=== PATIENT | male | born 1940 | race Caucasian/White ===

== ENCOUNTER 2018-08-04 19:13 | Inpatient (IN) | payer OTHER ==
[~2018-08-04] VITALS: Ht 167.6 cm; Wt 94.3 kg
--- NOTE | 2018-08-04 19:38 | NUR ---
PT BIB FAMILY FOR C/O COUGH X 5 DAYS. PT STATES THAT [place] AND USUALLY IS ON 2L 02 AT NIGHT WHILE HE SLEEPS HOWEVER HE RAN OUT OF HIS 02 TANK. PT IS REQUESTING A PRESCRIPTION FOR ANOTHER ONE BECAUSE HE GETS SOB WHEN HE COUGHS. PT IS SATURATING AT 96% ON RA AND HAS A HX OF COPD AND ASTHMA. PT IS SPEAKING IN CLEAR AND FULL SENTENCES. PT HAS EQUAL AND UNALBORED CHEST RISE. NAD AT THIS TIME. AWAITING MSE. PT CONNECTED TO PLETH OX
--- NOTE | 2018-08-04 19:54 | NUR ---
PT LUNG SOUNDS CLEAR IN ALL FLEMING. UPON INSPIRATION PT COUGHS ALMOST EVERY TIME. PT COUGH IS DRY AND DEEP. PT BECOMES SOB UPON COUGHING, BUT IS ABLE TO CATCH HIS BREATH WITHIN A FEW SECONDS
--- NOTE | 2018-08-04 20:09 | NUR ---
BREATHING TX IN PROGRESS RT AT BEDSIDE
[2018-08-04 20:13] LABS: BASOPHIL % 0.5 % (0-2); PLATELET COUNT 167 x10^3mcL (130-400); RED CELL DISTRIBUTION WIDTH 14.2 % (11.5-14.5)
--- NOTE | 2018-08-04 20:32 | NUR ---
RT AT BEDSIDE FOR BREATHING TX
[2018-08-04 20:42] LABS: T3 TOTAL 1.24 ng/mL
[2018-08-04 21:17] LABS: CHLORIDE SERUM 106 mmol/L (98-107); POTASSIUM SERUM 3.6 mmol/L (3.5-5.1); SODIUM SERUM 144 mmol/L (136-145)
--- NOTE | 2018-08-04 21:28 | NUR ---
PT STATES RELIEF FROM CHEST TIGHTNESS AND STATES HE CAN BREATHE BETTER AFTER THE 2 BREATHING TX
[2018-08-04 21:33] LABS: ALBUMIN 3.6 g/dL (3.4-5.0); ALKALINE PHOSPHATASE 101 U/L (46-116); ALT/SGPT 20 U/L (16-63); AST/SGOT 21 U/L (15-37); BILIRUBIN TOTAL 0.59 mg/dL (0.20-1.00); CALCIUM 9.4 mg/dL (8.5-10.1); CARBON DIOXIDE 24.9 mmol/L (21-32); CHOLESTEROL 153 mg/dL (<200); CHOLESTEROL/HDL RATIO 3.7; GLUCOSE SERUM 116 mg/dL (74-106); HDL CHOLESTEROL 41 mg/dL (40-60); LIPASE 72 IU/L (73-393); TOTAL PROTEIN, SERUM 7.1 g/dL (6.4-8.2); TRIGLYCERIDES 163 mg/dL (<150)
--- NOTE | 2018-08-04 21:49 | NUR ---
PT REQUESTING FOOD. MD GIBBS STATES ITS OKAY FOR HIM TO EAT. PT PROVIDED TUNA SANWHICH, SPRITE, AND JELLO FOR HUNGER. PT ATE ENTIRITY OF MEAL.
[2018-08-04] MEDS ORDERED: TRAMADOL HCL50 MG PO (21:51)
[2018-08-04] MEDS ORDERED: TIZANIDINE HCL4 MG PO (21:51)
[2018-08-04] MEDS ORDERED: BENZONATATE100 M1 PO (21:52)
[2018-08-04] MEDS ORDERED: GOOD SENSE OMEP20 MG PO (21:52)
[2018-08-04] MEDS ORDERED: GOOD SENSE ASPI81 M3 PO (21:52)
[2018-08-04] MEDS ORDERED: SERTRALINE100 M1 PO (21:53)
[2018-08-04] MEDS ORDERED: MOT800 PO (21:58)
[2018-08-04] MEDS ORDERED: OXYCODONE HYDRO10 M1 PO (21:58)
[2018-08-04] MEDS ORDERED: ATORVASTATIN CA40 M1 PO (21:58)
[2018-08-04] MEDS ORDERED: MYCOC TOP (21:59)
[2018-08-04] MEDS ORDERED: CYCLOBENZAPRINE10 MG PO (21:59)
[2018-08-04] MEDS ORDERED: FLOMAX0.4 MG PO (22:00)
[2018-08-04] MEDS ORDERED: FLOVENT DI50 MCG/Ac1 IH (22:00)
--- NOTE | 2018-08-04 22:06 | NUR ---
CALLED REPORT TO JACQUELINE CHONG
[2018-08-04 22:23] LABS: FREE T4 0.97 ng/dL (0.76-1.46); FREE THYROXINE INDEX 2.2 ug/dL (1.4-4.5); T4(THYROXINE) 5.7 ug/dL (4.7-13.3)
[2018-08-04 22:29] LABS: MAGNESIUM 1.9 mg/dL (1.8-2.4)
--- NOTE | 2018-08-04 22:39 | NUR ---
RECEIVED PT FROM ER, PT ADMIT FOR PNA, COPD, PT IS A/O X4, VERBAL RESPONSIVE, AGUA CALIENTE, LUNG SOUND WHEEZING ELEUTERIO, CONSTANTLY COUGH, PT IS ON 2L/MIN O2 VIA NC. PO2 96%, DENY ANY SOB AT THIS MOMENT, PT IS ON TELE 9, FIRST DEGREE, DENY ANY CHEST PAIN OR DISCOMFORT, BOWEL SOUND PRESENT ALL 4 QUADRANTS, NO DISTENTION, NO TENDER. PEDAL PULSE PRESENT BOTH FEET, +1 EDEMA BLE. THERE IS DRY ABRASION AT RIGTH KNEE. FORM SCAB ON THE TOP. FOOT WORKER, IV AT RIGHT HAND, NO LEAKING, NO INFILTRATION, ALL ADLS ASSIST, ALL NEED MET, CALL LIGHT IN REACH, WILL CONTINUE TO MONITOR.
[2018-08-04 23:40] VITALS: BP 105/57
--- NOTE | 2018-08-05 | NUR ---
STARTED ON IVF NS AT 100CC/HR VIA PERIPHERAL LINE AT THE RIGHT HAND TOLERATING WELL. SOLUMDEROL 40MG IVP ORDERED. MINIMAL ASSIST IN REPOSITIONING FOR COMFORT.
[2018-08-05 05:41] VITALS: BP 125/73
--- NOTE | 2018-08-05 06:04 | NUR ---
WILL START ATB IVPB FOR MANAGEMENT OF PNEUMONIA. TOLERATED ORAL FLUIDS . NO S/S ASPIRATION NOTED.
[2018-08-05 07:50] LABS: CARBON DIOXIDE 22.4 mmol/L (21-32); CHLORIDE SERUM 108 mmol/L (98-107); CREATININE SERUM 0.9 mg/dL (0.7-1.3); GLUCOSE SERUM 150 mg/dL (74-106); SODIUM SERUM 143 mmol/L (136-145)
--- NOTE | 2018-08-05 07:56 | NUR ---
[Patient is on bed and sleeping. No sign of dyspnea and abnormal Heart rhythm. Patient monitor shows a normal sinus rhythm. VSare within normal limits
[2018-08-05 08:31] VITALS: BP 126/50
[2018-08-05 11:58] LABS: BASOPHIL % 0.3 % (0-2); PLATELET COUNT 161 x10^3mcL (130-400); RED CELL DISTRIBUTION WIDTH 14.3 % (11.5-14.5)
[2018-08-05 12:39] LABS: UA SPECIFIC GRAVITY <=1.005 (1.005-1.035); microscopic required? NO; urine erythrocyte NEGATIVE (NEGATIVE)
[2018-08-05 12:55] VITALS: BP 106/71
[2018-08-05 17:05] VITALS: BP 120/62
--- NOTE | 2018-08-05 19:30 | NUR ---
RECIEVED PATIENT AT START OF SHIFT A/O X4. FAMILY AT BEDSIDE. BREATHS SHALLOW. VERY LOUD WHOOPING COUGH. SATTING 96% ON 2L NC. LUNGS HAVE COURSE CRACKLES IN BILATERAL BASES. ON TELE NUMBER 9 1ST DEGREE AV BLOCK. SLIGHT NON-PITTING EDEMA NOTED TO BLE. IV TO R HAND INFUSING WITHOUT ERYTHEMA OR INFILTRATION. BED LOCKED AND IN LOWEST POSIITON. CALL LIGHT AND BEDSIDE TABLE WITHIN REACH.
[2018-08-05 21:08] VITALS: BP 102/45
--- NOTE | 2018-08-05 21:30 | NUR ---
PATIENT GIVEN NORCO PER EMAR FOR 8/10 LOWER BACK PAIN.
--- NOTE | 2018-08-05 23:30 | NUR ---
PATIENT'S SPUTUM SAMPLE WAS REJECTED BY LAB. DR. JAMA NOTIFIED. CHARLA LANDEROS ORDER TO OBTAIN ANOTHER SAMPLE.
[2018-08-06 05:30] VITALS: BP 130/66
--- NOTE | 2018-08-06 06:38 | NUR ---
PATIENT IS AWAKE. NO FURTHER SIGNIFICANT EVENTS THIS SHIFT. IV INFUSING WITHOUT ERYTHEMA OR IFILTRATION. CALL LIGHT WITHIN REACH. WILL ENDORSE CARE TO MORNING NURSE.
[2018-08-06 06:39] VITALS: BP 132/66
--- NOTE | 2018-08-06 07:15 | NUR ---
AAO X4. C/O CHEST PAIN AT 4/10 PAIN SCALE.CLAIMS FROM COUGHING.PT WITH PRODUCTIVE COUGH.ON SR ON THE MONITOR.IVF NS GOING AT 75 ML/HR INFUSING WELL.CALL LIGHT WITHIN REACH.INSTRUCTED TO CALL FOR ANY PAIN/DISCOMFORT.WILL CONTINUE TO MONITOR PT.
[2018-08-06 07:34] LABS: BASOPHIL % 0.2 % (0-2); PLATELET COUNT 172 x10^3mcL (130-400)
[2018-08-06 07:39] LABS: RED CELL DISTRIBUTION WIDTH 14.7 % (11.5-14.5)
[2018-08-06 07:46] LABS: CALCIUM 8.7 mg/dL (8.5-10.1); CARBON DIOXIDE 22.7 mmol/L (21-32); CHLORIDE SERUM 108 mmol/L (98-107); CREATININE SERUM 0.9 mg/dL (0.7-1.3); GLUCOSE SERUM 132 mg/dL (74-106); POTASSIUM SERUM 4.3 mmol/L (3.5-5.1); SODIUM SERUM 142 mmol/L (136-145)
[2018-08-06 08:52] VITALS: BP 118/73
[2018-08-06 09:18] VITALS: Ht 167.6 cm; Wt 94.3 kg
--- NOTE | 2018-08-06 10:00 | NUR ---
INSTRUCTED PT TO COLLECT HIS SPUTUM IN A CUP FOR CULTURE.PT VERBALIZES UNDERSTANDING.
[2018-08-06 12:24] VITALS: BP 94/42
[2018-08-06 17:53] VITALS: BP 143/58
--- NOTE | 2018-08-06 19:00 | NUR ---
NO SIGNIFICANT CHANGE NOTED.WILL ENDORSE TO NEXT SHIFT.
--- NOTE | 2018-08-06 19:32 | NUR ---
RECIEVED PATIENT AT START OF SHIFT A/O X4, PATIENT JUST GOT OUT OF THE SHOWER, AND IS GETTING BACK IN BED. TELE NUMBER [address], IST DEGREE AV BLOCK. PATIENT BLE NON-PITTING EDEMA. LUNGS ARE DIMINISHED WITH COURSE CRACKLES, BILATERAL LOWER LOBES. 2L NC IN PLACE, NO SOB NOTED. RIGHT KNEE SCAB NOTED TL. PATIENT REPORTS 8/10 BACK PAIN AT THIS TIME. WILL MEDICATE WITH NORCO PER EMAR. IV TO RH IS SALINE LOCKED. BED LOCKED AND IN LOWEST POSITION. CALL LIGHT WITHIN REACH.
[2018-08-06 19:40] VITALS: BP 121/59
--- NOTE | 2018-08-06 21:25 | NUR ---
PATIENT GIVEN NORCO PER EMAR FOR BACK PAIN. 08/07.
[2018-08-07 06:15] VITALS: BP 125/74; BP 156/74
--- NOTE | 2018-08-07 06:52 | NUR ---
NO FURTHER SIGNIFICANT EVENTS THIS SHIFT. PATIENT IS COMFORTABLE IN BED. CALL LIGHT WITHIN REACH. IV SALINE LOCKED. WILL ENDORSE TO DAYSHIFT NURSE.
[2018-08-07 06:59] LABS: BASOPHIL % 0.1 % (0-2); PLATELET COUNT 166 x10^3mcL (130-400)
[2018-08-07 07:02] LABS: RED CELL DISTRIBUTION WIDTH 14.6 % (11.5-14.5)
[2018-08-07 07:27] LABS: CARBON DIOXIDE 21.4 mmol/L (21-32); CHLORIDE SERUM 106 mmol/L (98-107); GLUCOSE SERUM 285 mg/dL (74-106); POTASSIUM SERUM 4.1 mmol/L (3.5-5.1); SODIUM SERUM 140 mmol/L (136-145)
--- NOTE | 2018-08-07 07:30 | NUR ---
PT ENDORSE TO ME THIS MORNING. LAYING IN BED RESTING, AA/O X4/ BREATHING EVEN AND UNLABORD ON 2L NC, DIM AT BASES, COURSE CRACKLES NOTED TO UPPER AIR WAYS. NO ACUTE RESP DISTRESS NOTED. TELE 9 NOTED, FIRST DEG AV BLOCK NOTED, HR 84, DENIES ANY CP OR PRESSURE. VOIDS FREELY/ URINAL. AMB/ OK TO SHOWER. IV TO THE R HAND INTACT AND PATENT. NO REDNESS OR SWELLING NOTED/ HEPLOCKED. WILL CONTINUE TO MONITOR.
[2018-08-07 08:49] VITALS: BP 149/66
--- NOTE | 2018-08-07 08:53 | NUR ---
PT C/O OF GEN BODY PAIN 06/07, MEDICATED PER EMAR.
[2018-08-07 12:23] VITALS: BP 113/77
[2018-08-07 16:48] VITALS: BP 114/61
--- NOTE | 2018-08-07 17:33 | NUR ---
PT LAYING IN BED RESTING. BREATHING EVEN AND UNLABORED ON RA/ NO ACUTE RESP DISTRESS OR SOB NOTED. NO SIGN OF CP OR PRESSURE. CALL LIGHT IN REACH. BED IN LOW POSITION. WILL CONTINIE TO MONITOR.
--- NOTE | 2018-08-07 18:37 | NUR ---
NO ACUTE CHANGES AT THIS TIME. NO ACUTE RESP DISTRESS OR SOB NOTED. BREATHING EVEN AND UNLABORED ON RA/ TOLERATING WELL. DENIES ANY CP OR PRESSURE. IV TO THE RIGHT HAND INTACT AND PATENT/ HEPLOCKED. DENIES ANY DISCOMFORT AT THIS TIME. TOLERATED 100% OF HIS DINNER. WILL ENDORSE TO INCOMING RN.
[2018-08-07 18:40] VITALS: BP 114/61
[2018-08-07 21:11] VITALS: BP 129/63
--- NOTE | 2018-08-07 22:37 | NUR ---
EYES CLOSED, BREATHING EVEN AND UNLABORED ON ROOM AIR. HOB KEPT ELEVATED 30 DEG. IVPB ZITHRO INFUSING AT THIS TIME. CALL LIGHT WITHIN EASY REACH.
--- NOTE | 2018-08-08 00:51 | NUR ---
AMBULATING IN ROOM, GAIT STEADY.
[2018-08-08 04:56] VITALS: BP 116/71
[2018-08-08 06:26] LABS: CARBON DIOXIDE 27.9 mmol/L (21-32); CHLORIDE SERUM 104 mmol/L (98-107); GLUCOSE SERUM 313 mg/dL (74-106); POTASSIUM SERUM 4.5 mmol/L (3.5-5.1); SODIUM SERUM 140 mmol/L (136-145)
[2018-08-08 06:27] LABS: BASOPHIL % 0.1 % (0-2); PLATELET COUNT 178 x10^3mcL (130-400); RED CELL DISTRIBUTION WIDTH 14.4 % (11.5-14.5)
--- NOTE | 2018-08-08 06:33 | NUR ---
EYES CLOSED, EASILY AWAKENED. HOB KEPT ELEVATED 30 DEG. BREATHING UNLABORED, BUT NOTED HAVING COUGHING AT TIMES. SALINE LOCK TO RIGHT HAND FLUSHED WELL. CALL LIGHT WITHIN EASY REACH.
--- NOTE | 2018-08-08 07:11 | NUR ---
EYES CLOSED, BREATHING UNLABORED ON ROOM AIR. CALL LIGHT WITHIN EASY REACH. ENDORSED TO NURSE FRANCISCO
--- NOTE | 2018-08-08 07:30 | NUR ---
PT ENDORSE TO ME THIS MORNING. LAYING IN BED RESTING. AA/OX4. BREATHING EVEN AND UNLABORED ON RA. NO ACUTE RESP DISTRESS OR SOB NOTED.TELE 9 HR 89 NOTED, 1D DEG AV BLOCKED NOTED/ DENIES ANY CP OR PRESSURE. VOIDS FREELY. AMB . KNOWS TO CALL FOR ASSIST. IV TO THE RIGHT HAND INTACT AND PATENT/ HEPLOCKED. WILL CONTINUE PLAN OF CARE.
[2018-08-08 10:03] VITALS: BP 151/91
--- NOTE | 2018-08-08 10:53 | NUR ---
PT C/O COUGHING TOO MUCH, MEDICATED PER EMAR. WILL CONTINUE TO MONITOR.
[2018-08-08] MEDS ORDERED: PREDNISONE20 MG PO (11:26)
[2018-08-08] MEDS ORDERED: LEVAQUIN750 MG PO (11:26)
--- NOTE | 2018-08-08 13:30 | NUR ---
PT TOLERATED 100% OF HIS LUNCH. DENIES ANY CP OR PRESSURE. REMAINS ON RA, TOLERATING WELL. WILL CONTINUE TO MONITOR.
[2018-08-08 13:35] VITALS: BP 121/69
--- NOTE | 2018-08-08 14:31 | NUR ---
PT STATING HIS RIDE CAN ARRIVE UNTIL 6PM, SCREEN PRINTER AWARE. WILL CONTINUE TO MONITOR.
--- NOTE | 2018-08-08 16:48 | NUR ---
EXPLAINED DISCHARGE INSTRUCTIONS, NEW AND CONTINUED MEDS AND APPT WITH PRIMARY DOCTOR, PT AGREED AND SIGNED ALL DOCUMENTS. REMOVED IV TO THE R HAND, CATHETER TIP INTACT, NO REDNESS OR SWELLING NOTED. PT RIDE WILL BE ARRIVING AT 1800. WILL CONTINUE TO MONITOR.
[2018-08-08 18:14] VITALS: BP 133/76
--- NOTE | 2018-08-08 18:47 | NUR ---
NO ACUTE CHANGES AT THIS TIME. NO ACUTE RESP DISTRESS OR SOB NOTED. PT CURRENTLY WAITING ON HIS RIDE. PENDING DISCHARGE. WILL ENDORSE TO INCOMING RN. TELE 9 REMOVED AND RETURNED TO TELE.
== END 2018-08-08 19:24 | disposition home or self-care (01) | DRG 193 ==
LOC: ED 19:13 → DU 21:50
PROVIDERS: Specialist; ADMIT Family Medicine
DX: J18.9 Pneumonia, unspecified organism (principal); J96.01 Acute respiratory failure with hypoxia; J44.1 Chronic obstructive pulmonary disease with (acute) exacerbation; E11.9 Type 2 diabetes mellitus without complications; K21.9 Gastro-esophageal reflux disease without esophagitis; F32.9 Major depressive disorder, single episode, unspecified; I10 Essential (primary) hypertension; G47.00 Insomnia, unspecified; E78.5 Hyperlipidemia, unspecified; F17.210 Nicotine dependence, cigarettes, uncomplicated; E66.9 Obesity, unspecified; Z68.33 Body mass index [BMI] 33.0-33.9, adult; Z95.2 Presence of prosthetic heart valve; Z99.81 Dependence on supplemental oxygen; Z79.82 Long term (current) use of aspirin; Z79.1 Long term (current) use of non-steroidal anti-inflammatories (NSAID)
CPT/HCPCS: 83880; 84439; 87804; G0378; J0132; J0456; J0696; J2920; J2930; J7030; J7040; J7050; J7613; J7620; J7644; Q0092

== ENCOUNTER 2018-08-12 15:54 | Inpatient (IN) | payer OTHER ==
[~2018-08-12] VITALS: Ht 167.6 cm; Wt 98.7 kg
[~2018-08-12 15:54] MED LIST: ATORVASTATIN CA40 M1 PO; BENZONATATE100 M1 PO; CYCLOBENZAPRINE10 MG PO; FLOMAX0.4 MG PO; FLOVENT DI50 MCG/Ac1 IH; GOOD SENSE ASPI81 M3 PO; GOOD SENSE OMEP20 MG PO; LEVAQUIN750 MG PO; MOT800 PO; MYCOC TOP; OXYCODONE HYDRO10 M1 PO; PREDNISONE20 MG PO; SERTRALINE100 M1 PO; TIZANIDINE HCL4 MG PO; TRAMADOL HCL50 MG PO
[2018-08-12 16:00] VITALS: Ht 167.6 cm; Wt 98.7 kg
--- NOTE | 2018-08-12 16:05 | NUR ---
PT SENT TO LOBBY NO S/S OF DISTRESS. VITALS STABLE. WALKS WITH CANE AT SIDE. SPEAKS IN CLEAR SENTENCES WITHOUT DIFFICULTY
--- NOTE | 2018-08-12 16:20 | NUR ---
PT TAKEN INTO BED 2A BY COURTESY BUS DRIVER. DR GIBBS AT BEDSIDE FOR MSE.
--- NOTE | 2018-08-12 17:17 | NUR ---
LAB AT BEDSIDE FOR LAB DRAW.
[2018-08-12 17:32] LABS: PLATELET COUNT 188 x10^3mcL (130-400); RED CELL DISTRIBUTION WIDTH 14.5 % (11.5-14.5)
[2018-08-12 17:49] LABS: CALCIUM 8.5 mg/dL (8.5-10.1); CARBON DIOXIDE 23.9 mmol/L (21-32); CHLORIDE SERUM 104 mmol/L (98-107); CREATININE SERUM 1.1 mg/dL (0.7-1.3); GLUCOSE SERUM 264 mg/dL (74-106); POTASSIUM SERUM 4.5 mmol/L (3.5-5.1); SODIUM SERUM 139 mmol/L (136-145)
[2018-08-12 18:03] LABS: ALKALINE PHOSPHATASE 194 U/L (46-116); ALT/SGPT 35 U/L (16-63); AST/SGOT 18 U/L (15-37); BILIRUBIN TOTAL 0.3 mg/dL (0.20-1.00); C REACTIVE PROTEIN 0.2 mg/dL (<=0.9); TOTAL PROTEIN, SERUM 6.4 g/dL (6.4-8.2)
--- NOTE | 2018-08-12 18:03 | NUR ---
PT INSTRUCTED TO PROVDE CLEAN CATCH URINE SAMPLE, ATTEMPTED WITH URINAL, UNSUCCESSFUL. PT ASKED TO DRINK ICED TEA, "TO HELP ME PEE", DR GIBBS MADE AWARE STS OK TO ALLOW PT TO DRINK ICED TEA.PT DRINKING ICED TEA. ON FULL CM, NAD NOTED AT THIS TIME. INCREASED AERATION NOTED UPON AUSCULTATION.
[2018-08-12 18:04] LABS: ALBUMIN 3.3 g/dL (3.4-5.0)
[2018-08-12 18:07] LABS: T3 TOTAL 0.88 ng/mL
[2018-08-12 18:12] LABS: ATYPICAL LYMPH 1 %; BAND NEUTROPHIL 2 % (0-10); BASOPHIL 0 % (0-2); METAMYELOCTE 3 % (0-2); MONOCYTE 2 % (0-7); SEGMENTED NEUTROPHILS 82 % (37-75)
[2018-08-12 18:13] LABS: PLATELET MORPHOLOGY PLATELETS NORMAL; rbc morphology (normal/abnorm) NORMAL (NORMAL)
--- NOTE | 2018-08-12 18:26 | NUR ---
DR GIBBS AT BEDSIDE TO DISCUSS POC WITH PT AND FAMILY.
[2018-08-12 18:31] LABS: FREE T4 0.91 ng/dL (0.76-1.46); FREE THYROXINE INDEX 1.9 ug/dL (1.4-4.5)
[2018-08-12 18:51] LABS: ERYTHROCYTE SED RATE 6 mm/hr (0-20)
--- NOTE | 2018-08-12 18:54 | NUR ---
PT REQUESTING FOOD, PER DR BERNIE JOHNSON TO GIVE PT A SANDWICH AND A DRINK. PT EATING SANDWICH, ON FULL CM. CALL LIGHT WITHIN REACH, IN POSITION OF COMFORT.
--- NOTE | 2018-08-12 18:59 | NUR ---
PT MEDICATED PER EMAR.
--- NOTE | 2018-08-12 19:12 | NUR ---
PER DR BERNIE JOHNSON TO D/C PT WITHOUT URINE SAMPLE.
--- NOTE | 2018-08-12 19:23 | NUR ---
REPORT GIVEN TO ARLETTE THOMAS TO ASSUME CARE OF PT.
[2018-08-12 20:23] VITALS: BP 142/81
--- NOTE | 2018-08-12 20:38 | NUR ---
RECEIVED PT FROM ED VIA AQUILES. ORIENTED PT TO ROOM AND SURROUNDINGS. IV NOTED TO RH PATENT AND INTACT. TELE 14 PLACED ON PT READING STA. INSTRUCTED PT ON THE USE OF CALL LIGHT FOR ASSISTANCE. ENDORSED PT TO PRIMARY NURSE LORI
--- NOTE | 2018-08-12 20:39 | NUR ---
RECEIVED PT FROM ARLETTE THOMAS. PT A/OX4. DENIES PAIN. DENIES SOB ON RA. SOB ON EXCERTION. IV PATENT AND FLUSHING WELL. ORIENTED PT TO ROOM AND SURROUNDINGS. CALL LIGHT WITHIN REACH, BED IN LOW POSITION. WILL CONTINUE TO MONITOR.
[2018-08-12 21:54] LABS: microscopic required? NO
[2018-08-12 22:07] LABS: urine erythrocyte NEGATIVE (NEGATIVE)
--- NOTE | 2018-08-13 00:01 | NUR ---
PER PATIENT'S REQUEST, PT PLACED ON O2 2LNC TO SLEEP. PT STATES HE USES HOME O2 AT NIGHT.
--- NOTE | 2018-08-13 02:01 | NUR ---
PT RESTING IN NO ACUTE DISTRESS. RR EVEN AND UNLABORED. CALL LIGHT WITHIN REACH, BED IN LOW POSITION. WILL CONTINUE TO MONITOR.
[2018-08-13 05:07] LABS: PLATELET COUNT 185 x10^3mcL (130-400)
[2018-08-13 05:11] LABS: RED CELL DISTRIBUTION WIDTH 14.8 % (11.5-14.5)
[2018-08-13 05:21] LABS: METAMYELOCTE 2 % (0-2); MONOCYTE 3 % (0-7); PLATELET MORPHOLOGY PLATELETS NORMAL; SEGMENTED NEUTROPHILS 89 % (37-75); rbc morphology (normal/abnorm) NORMAL (NORMAL)
[2018-08-13 05:31] LABS: ALBUMIN 3.4 g/dL (3.4-5.0); ALKALINE PHOSPHATASE 168 U/L (46-116); ALT/SGPT 24 U/L (16-63); AST/SGOT 12 U/L (15-37); BILIRUBIN TOTAL 0.45 mg/dL (0.20-1.00); CALCIUM 9.2 mg/dL (8.5-10.1); CARBON DIOXIDE 25.3 mmol/L (21-32); CHLORIDE SERUM 105 mmol/L (98-107); CREATININE SERUM 1.3 mg/dL (0.7-1.3); GLUCOSE SERUM 295 mg/dL (74-106); MAGNESIUM 1.8 mg/dL (1.8-2.4); PHOSPHOROUS 3.2 mg/dL (2.5-4.9); POTASSIUM SERUM 4.3 mmol/L (3.5-5.1); SODIUM SERUM 142 mmol/L (136-145); TOTAL PROTEIN, SERUM 6.9 g/dL (6.4-8.2)
[2018-08-13 05:37] VITALS: BP 126/60
--- NOTE | 2018-08-13 07:12 | NUR ---
RECEIVED PT FROM RESPIRATORY COORDINATOR NURSE. PT IN BED SLEEPING, [place], RESP E/U ON RA. NO ACUTE DISTRESS NOTED. ON TELE [address], HR: 105. SALINE LOCK TO R HAND W/ NO ERYHTMA OR EDEMA. BED IN LOWEST POSITION AND CALL LIGHT WITHIN REACH. WILL CONTINUE TO MONITOR.
[2018-08-13 07:37] VITALS: BP 123/70
--- NOTE | 2018-08-13 12:44 | NUR ---
PT SITTING UPRIGHT IN BED HAVING LUNCH, AOX4, RESP E/U ON NC AT 2 LPM. NO ACUTE DISTRESS NOTED. DENIES PAIN OR SOB. BED IN LOWEST POSITON AND CALL LIGHT WITHIN REACH. WILL CONTINUE TO MONITOR.
[2018-08-13 12:45] LABS: AMPHETAMINE QUAL UR NONE DETECTED (See below)
[2018-08-13 13:02] VITALS: BP 130/107
[2018-08-13 16:59] VITALS: BP 107/61
--- NOTE | 2018-08-13 17:25 | NUR ---
PT SITTING UPRIGHT IN BED, AOX4, RESP E/U ON NC AT 2 LPM. NO ACUTE DISTRESS NOTED. DENIES PAIN OR SOB AT THIS TIME. IV TO R HAND W/ NO SIGNS OF INFILTRATION, IVF INFUSING WELL. BED IN LOWEST POSITION AND CALL LIGHT WITHIN REACH. WILL CONTINUE TO MONITOR.
[2018-08-13 19:34] VITALS: BP 102/62
--- NOTE | 2018-08-13 19:45 | NUR ---
RECEIVED PT FROM PREVIOUS SHIFT. PT A/OX4. DENIES PAIN. DENIES SOB ON RA. IV PATENT. CALL LIGHT WITHIN REACH, BED IN LOW POSITION. WILL CONITNUE TO MONITOR.
--- NOTE | 2018-08-14 02:01 | NUR ---
PT RESTING IN NO ACUTE DISTRESS. RR EVEN/UNLABORED. CALL LIGHT WITHIN REACH, BED IN LOW POSITION. WILL CONTINUE TO MONITOR.
[2018-08-14 06:38] VITALS: BP 118/65
[2018-08-14 06:56] LABS: CALCIUM 8.6 mg/dL (8.5-10.1); CARBON DIOXIDE 26.1 mmol/L (21-32); CHLORIDE SERUM 105 mmol/L (98-107); CREATININE SERUM 1.1 mg/dL (0.7-1.3); GLUCOSE SERUM 197 mg/dL (74-106); PHOSPHOROUS 4.1 mg/dL (2.5-4.9); SODIUM SERUM 143 mmol/L (136-145)
[2018-08-14 07:09] LABS: BASOPHIL % 0.1 % (0-2); PLATELET COUNT 164 x10^3mcL (130-400)
[2018-08-14 07:11] LABS: RED CELL DISTRIBUTION WIDTH 15.1 % (11.5-14.5)
--- NOTE | 2018-08-14 07:40 | NUR ---
AAO X4.DENIES ANY PAIN/DISCOMFORT.LUNG SOUND WITH COARSE RHONCHI.ON 2 L O2.DENIES ANY SOB.PT NONE TELE.IV TO TKO.CALL LIGHT WITHIN REACH.INSTRUCTED TO CALL FOR ANY PAIN/DISCOMFORT.CALL LIGHT WITHIN REACH.WILL CONTINUE TO MONITOR PT.
[2018-08-14 09:00] VITALS: BP 135/82
--- NOTE | 2018-08-14 14:15 | NUR ---
CLAIMS TO HAVE COUGHED OUT PHLEGM AND NEARLY CHOKED HIM.NOTED PHLEGM TO BE WHITE AND LARGE AMOUNT.NO BLOOD NOTED ON THE PHLEGM.
[2018-08-14 17:21] VITALS: BP 120/62
--- NOTE | 2018-08-14 18:23 | NUR ---
NO SIGNIFICANT CHANGE NOTED.WILL ENDORSE TO NEXT SHIFT.
--- NOTE | 2018-08-14 19:10 | NUR ---
REPORT RECIEVED FROM DAY SHIFT RN. PATIENT WAS SEEN AND IS RESTING COMFORTBALY IN BED. NO DISTRESS NOTED. BREATHING EVEN ON 2L NC. NO SOB OR RESP DISTRESS NOTED. MED SURG PATIENT. DENIES CHEST PAIN. NO C/O PAIN. IV TO THE RIGHT HAND, SL. PATENT AND INTACT. NO REDNESS OR SWELLING NOTED. EDUCATED PATIENT ON FLUID RESTRICTION, HE VERBALIZED UNDERSTANDING. COMFORT AND SAFETY MEASURES MAINTAINED. BED IS LOCKED AND IN THE LOWEST POSITION. SIDE RAILS UP X2. CALL LIGHT IS WITHIN REACH. WILL CONTINUE TO MONITOR.
[2018-08-14 20:49] VITALS: BP 118/66
--- NOTE | 2018-08-14 21:56 | NUR ---
GAVE PATIENT MAN CRACKER AND SUGAR FREE JELLO PER REQUEST. PATIENT IS SITTER ON THE SIDE OF THE BED. NO DISTRESS NOTED. BREATHING EVEN ON 2L NC. NO C/O PAIN. CALL LIGHT IS WITHIN REACH. WILL CONTINUE TO MONITOR.
[2018-08-14 22:10] VITALS: BP 118/66
--- NOTE | 2018-08-15 00:53 | NUR ---
PATIENT IS SITTING AT THE BEDSIDE TABLE EATING FRUIT. NO DISTRESS NOTED. BREATHING EVEN ON 2L NC. NO C/O PAIN. IV TO THE RIGHT HAND INFUSING ABX WELL. COMFORT AND SAFETY MEASURES MAINTIANED. CALL LIGHT IS WITHIN REACH. WILL CONTINUE TO MONITOR.
[2018-08-15 05:07] VITALS: BP 135/90
[2018-08-15 06:26] LABS: CALCIUM 8.7 mg/dL (8.5-10.1); CARBON DIOXIDE 32.6 mmol/L (21-32); CHLORIDE SERUM 104 mmol/L (98-107); CREATININE SERUM 1.1 mg/dL (0.7-1.3); GLUCOSE SERUM 130 mg/dL (74-106); POTASSIUM SERUM 4.3 mmol/L (3.5-5.1); SODIUM SERUM 142 mmol/L (136-145)
--- NOTE | 2018-08-15 06:46 | NUR ---
PATIENT SLEPT IN LONG INTERVALS THROUGHOUT THE NIGHT. NO ACUTE CHANGES NOTED. BREATHING EVEN ON 2L NC. NO DISTRESS NOTED. NO C/O PAIN THROUGHOUT THE NIGHT.IV TO THE RIGTH HAND INFUSING ABX WELL. PATENT AND INTACT. NO REDNESS OR SWELLING NOTED. COMFORT AND SAFETY MEASURES MAINTAINED. CALL LIGHT IS WITHIN REACH. WILL ENDORSE CARE TO DAY SHIFT RN.
[2018-08-15 07:04] LABS: BASOPHIL % 0.2 % (0-2); PLATELET COUNT 153 x10^3mcL (130-400); RED CELL DISTRIBUTION WIDTH 14.4 % (11.5-14.5)
--- NOTE | 2018-08-15 07:35 | NUR ---
RECEIVED PT IN BED, AAOX4, VERBAL, CALM AND COOPERATIVE WITH POC, PERRLA, TRACH AT MIDLINE, LUNG CTA, DIM BLL, ON O2 AT 2L/MIN VIA NC, NO ACUTE RESP DISTRESS/SOB, RT, NORMAL HEART RHYTHM, PAL PULSE, CAP REFILL < 3 SEC, SKIN W/D/I, ABD ROUND AND NONTENDER TO TOUCH, BS ACTIVE X 4, LAST BM 08/15/18, GENERALIZED WEAKESS, AMBULATORY, CONTINENT, CALL LIGHT IN TOUCH, BED AT LOW POSITION, CONTINUE TO MONITOR
--- NOTE | 2018-08-15 08:30 | NUR ---
PT IN BED, AAOX4, VERBAL, NO ACUTE RESP DISTRESS/SOB AT THIS TIME, REPORTED NO PAIN/DISCOMFORT, REPORTED NO CHEST PAIN/PRESURE, NO DIZZINESS/N/V/D, MORING MED GIVEN PER ORDERED VIA EMAR, TOLERATED WELL, NO ASE REPORTED AT THIS TIME, CALL LIGHT IN TOUCH, BED AT LOW POSITION, CONTINUE TO MONITOR
[2018-08-15 09:20] VITALS: BP 136/79
--- NOTE | 2018-08-15 11:55 | NUR ---
I HAVE REVIEWED THE DATA COLLECTION BY ARLETTE QUIROZ (NAME):XU GUILLERMO ENTERED ON (DATE/TIME):08/15/18 @ 9054 I CONCUR WITH THE DATA AND ANY EXCEPTIONS OR COMMENTS ARE LISTED BELOW:
[2018-08-15 16:08] VITALS: BP 138/80
--- NOTE | 2018-08-15 19:33 | NUR ---
PT IN BED, SLEEPING, NO ACUTE DISTRESS NOTED, DENIES PAIN/[PRESSURE, DENIES DIZZINESS/N/V AT THIS TIME, RESP EVEN AND NONLABOTED, COUGHING, REFUSED CP/PRESSURE, IV TO RIGHT FA PATIENT AND NO S/S OF INFECTION NOTED, REPORT GIVEN TO SUPERVISOR TYPE BAR AND SEGMENT RN, CALL LIGHT WITHIN REACH, BED AT LOW POSITION, CONTINUE TO MONITOR AND F/U
--- NOTE | 2018-08-15 20:28 | NUR ---
PATIENT RECEIVED AWAKE, ALERT, ORIENTED X4 IN BED. RESPIRATION EVEN AND UNLABORED, BREATH SOUNDS DIMINISHED ON THE BASES, ON O2 2L PER NASAL CANNULA, POSITIVE PRODUCTIVE COUGH WITH WHITISH-YELLOWISH PHLEGM MODERATE IN AMOUNT. NO GI COMPLAINTS NOTED. VOIDING FREELY WITHOUT DIFFICULTY, USES URINAL. ON 1,200 ML FLUID RESTRICTION. MILD GENERALIZED WEAKNESS, AMBULATORY. SKIN DRY AND INTACT. TRACE EDEMA TO BLE. NO IV ACCESS AT THIS TIME, PATIENT ACCIDENTALLY PULLED OUT IV. DENIES PAIN AT THIS TIME. WILL CONTINUE TO MONITOR.
[2018-08-15 21:03] VITALS: BP 125/57
--- NOTE | 2018-08-15 21:31 | NUR ---
PATIENT REFUSED HHN TX, EZPAP, AND BIPAP. PATIENT STATED THAT HE JUST WANTS TO SLEEP AND DOES NOT HAVE ANY PROBLEMS WITH HIS BREATHING. SPO2 PRE TX 97 ON 2L/M AND HEART RATE 72.
--- NOTE | 2018-08-15 22:27 | NUR ---
RE-INSERTED A NEW IV SITE ON THE RIGHT HAND. WILL CONTINUE TO MONITOR.
[2018-08-16 05:31] VITALS: BP 121/70
[2018-08-16 06:37] LABS: BASOPHIL % 0.2 % (0-2); PLATELET COUNT 151 x10^3mcL (130-400); RED CELL DISTRIBUTION WIDTH 14.5 % (11.5-14.5)
[2018-08-16 06:46] LABS: CALCIUM 8.3 mg/dL (8.5-10.1); CARBON DIOXIDE 28.1 mmol/L (21-32); CHLORIDE SERUM 104 mmol/L (98-107); CREATININE SERUM 1.1 mg/dL (0.7-1.3); GLUCOSE SERUM 199 mg/dL (74-106); SODIUM SERUM 140 mmol/L (136-145)
--- NOTE | 2018-08-16 06:50 | NUR ---
PATIENT RESTING IN BED. RESPIRATION EVEN AND UNLABORED, ON ROOM AIR, OCC COUGH NOTED. IV SITE NO SIGN OF INFILTRATION. ASSISTED WITH NEEDS. SAFETY OBSERVED. PLACED BED IN THE LOWEST POSITION. PLACED CALL LIGHT WITHIN REACH AT ALL TIMES.
--- NOTE | 2018-08-16 07:30 | NUR ---
PT ENDORSE TO ME THIS MORNING. LAYING IN BED RESTING. AA/O X4 BREATHING EVEN AND UNLABORED ON 2L NC, NO ACUTE RESP DISTRESS OR SOB NOTED, TOLERATING WELL. MEDSURG. JUAN ANY CP OR PRESSURE. VOIDS FREELY/ URINAL AT BEDSIDE. AMB, OK TO SHOWER. GEN WEAKNESS, KNOWS TO CALL FOR ASSIST. IV TO THE RFA, INTACT AND PATENT. CALL LIGHT IN REACH. BED IN LOW POSITION. WILL CONTINUE TO MONITOR.
[2018-08-16 08:15] VITALS: BP 128/78
[2018-08-16 09:17] VITALS: BP 126/79
--- NOTE | 2018-08-16 09:27 | NUR ---
PT C/O GEN BODY PAIN MEDICATED PER EMAR. WILL CONTINUE TO MONITOR.
[2018-08-16 16:33] VITALS: BP 124/72
--- NOTE | 2018-08-16 18:49 | NUR ---
NO ACUTE CHANGES AT THIS TIME. NO ACUTE RESP DISTRESS OR SOB NOTED/ REMAINS OF 2L NC. DENIES ANY CP OR PRESSURE. WILL ENDORSE TO INCOMING RN.
--- NOTE | 2018-08-16 19:10 | NUR ---
RECEIVED PT FROM PREVIOUS SHIFT NURSE. PT AOX4. [place]. DENIES [place]/DIZZINESS AT THIS TIME. MED SURG PT. DENIES CP/PRESSURE. DENIES SOB/DIFFICULTY BREATHING, ON 2L NC. IV TO RFA, INTACT AND PATENT. BED IN LOWEST POSITION. CALL LIGHT WITHIN REACH. WILL CONTINUE TO MONITOR.
[2018-08-16 20:03] VITALS: BP 98/51
[2018-08-17 05:22] VITALS: BP 120/59
[2018-08-17 07:20] LABS: PLATELET COUNT 157 x10^3mcL (130-400); RED CELL DISTRIBUTION WIDTH 13.6 % (11.5-14.5)
[2018-08-17 07:29] LABS: CALCIUM 8.8 mg/dL (8.5-10.1); CARBON DIOXIDE 27.3 mmol/L (21-32); CHLORIDE SERUM 104 mmol/L (98-107); CREATININE SERUM 1.1 mg/dL (0.7-1.3); GLUCOSE SERUM 147 mg/dL (74-106); POTASSIUM SERUM 4.3 mmol/L (3.5-5.1); SODIUM SERUM 141 mmol/L (136-145)
--- NOTE | 2018-08-17 07:30 | NUR ---
PT ENDORSE TO ME THIS MORNING. SITTING UP IN BED. AA/O X4. BREATHING EVEN AND UNLABORED ON 2L NC/ TOLERATING WELL. EDUCATED PT ON THE IMPORTANCE OF USING I.S. PT AGREEED. REMAINS MEDSURG. DENIES ANY CP OR PRESSURE. TRACE OF EDEMA NOTED BLE. LAST BM 08/16, REG. VOIDS FREELY/ URINAL AT TIMES. GEN WEAKNESS, OK TO SHOWER/ CANE AT BEDSIDE. IV TO THE RFA INTACT / PATENT/ HEPLOCKED. WILL CONTINUE PLAN OF CARE.
[2018-08-17 08:12] VITALS: BP 114/62
--- NOTE | 2018-08-17 09:05 | NUR ---
PT C/O CAMPBELL 06/07, MEDICATED PER EMAR. WILL CONTINUE TO MONITOR.
[2018-08-17 10:18] LABS: BAND NEUTROPHIL 4 % (0-10); BASOPHIL 0 % (0-2); MONOCYTE 8 % (0-7); PLATELET MORPHOLOGY LARGE PLATELET SEEN; SEGMENTED NEUTROPHILS 59 % (37-75); rbc morphology (normal/abnorm) ABNORMAL (NORMAL); tear drop cell (dacryocyte) 1+
[2018-08-17 11:51] VITALS: BP 110/63
[2018-08-17 16:36] VITALS: BP 116/59
--- NOTE | 2018-08-17 18:48 | NUR ---
NO ACUTE CHANGES AT THIS TIME. NO ACUTE RESP DISTRESS OR SOB NOTED. DENIES ANY DISCOMFORT OR CP AT THIS TIME. WILL ENDORSE TO INCOMING R.N.
--- NOTE | 2018-08-17 19:15 | NUR ---
RECEIVED PT FROM PREVIOUS SHIFT NURSE. PT AOX4. DENIES CAMP[place]/DIZZINESS. MED SURG PT. DENIES CP/PRESSURE. DENIES SOB/DIFFICULTY BREATHING, ON 2L NC. IV TO RFA, INTACT AND PATENT. BED IN LOWEST POSITION. CALL LIGHT WITHIN REACH. WILL CONTINUE TO MONITOR.
[2018-08-17 20:53] VITALS: BP 120/53
--- NOTE | 2018-08-18 03:00 | NUR ---
PT RESTING IN BED. RR EVEN AND UNLABORED. IN NO ACUTE DISTRESS. CALL LIGHT WITHIN REACH. BED IN LOWEST POSITION. WILL CONTINUE TO MONITOR.
[2018-08-18 04:43] VITALS: BP 108/59
[2018-08-18 07:09] LABS: BASOPHIL % 0.1 % (0-2); PLATELET COUNT 144 x10^3mcL (130-400); RED CELL DISTRIBUTION WIDTH 14.4 % (11.5-14.5)
--- NOTE | 2018-08-18 07:29 | NUR ---
ASSUMED CARE OF PATIENT. PATIENT SEEN RESTING THIS MORNING, EASILY AROUSABLE. NO COMPLAINTS OF PAIN OR DISCOMOFRT. NO APPARENT S/SX OF DISTRESS OR DISCOMOFRT. REMAINING ON 2L NC. IV ON RFA INTACT, NO REDNESS/SWELLING NOTED. WILL CONTINUE TO MONITOR.
[2018-08-18 07:43] LABS: CALCIUM 8.7 mg/dL (8.5-10.1); CARBON DIOXIDE 30.8 mmol/L (21-32); CHLORIDE SERUM 104 mmol/L (98-107); CREATININE SERUM 1.1 mg/dL (0.7-1.3); GLUCOSE SERUM 181 mg/dL (74-106); MAGNESIUM 2.2 mg/dL (1.8-2.4); POTASSIUM SERUM 4.4 mmol/L (3.5-5.1); SODIUM SERUM 140 mmol/L (136-145)
[2018-08-18 08:25] VITALS: BP 131/66
[2018-08-18 09:10] VITALS: BP 103/67
--- NOTE | 2018-08-18 13:50 | NUR ---
Receommendations: 1. Continue current diet order: Cardiac, low chol/fat, 2g Na
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
--- NOTE | 2018-08-18 14:46 | NUR ---
PATIENT SEEN RESTING IN BED WITH EQUAL AND UNLABORED RESPIRATIONS. NO NEW ISSUES.
[2018-08-18 17:14] VITALS: BP 106/55
--- NOTE | 2018-08-18 17:59 | NUR ---
IV ON RIGHT HAND LEAKING. IV REMOVED.
--- NOTE | 2018-08-18 18:43 | NUR ---
NEW 22G IV ON LFA PLACED, PATENT. NO COMPLAINTS OF PAIN OR DISCOMFORT. REMAINING ON 2L NC, NO SOB OR DISTRESS NOTED. WILL ENDORSE CARE TO ONCOMING RN.
--- NOTE | 2018-08-18 19:10 | NUR ---
REPORT REEIVED FROM DAY SHIFT RN. PATIENT WAS SEEN AND IS RESTING COMFORTABLY IN BED. BREATHING EVEN ON 2L NC. NO SOB OR RESP DISTRESS NOTED. COUGHING UP SCANT SPUTUM. NO C/O PAIN. DENIES CHEST PAIN. IV TO THE RFA, 22G, SALINE LOCK. PATENT AND INTACT. NO REDNESS OR SWELLING NOTED. EDUCATED PATIENT ON FLUID RESTIRCTION ABND PATIENT VERBALIZED UNDERSTANDING. COMFORT AND SAFETY MEASURES MAINTIANED. BED IS LOCKED AND IN THE LOWEST POSITION. SIDE RAILS UP X2. CALL LIGHT IS WITHIN REACH. WILL CONTINUE TO MONITOR.
[2018-08-18 21:00] VITALS: BP 119/64
--- NOTE | 2018-08-18 23:00 | NUR ---
PATIENT IS SITTING ON SIDE OF THE BED EATING. ON 2L NC WITH HUMIDIFER. BREATHING EVEN. NO DISTRESS NOTED. NO C/O PAIN. CALL LIGHT IS WITHIN REACH. SAFETY MEASURSE IN PLACE. WILL CONTINUE TO MONITOR.
--- NOTE | 2018-08-19 01:40 | NUR ---
PATIENT IS RESTING COMFORTABLY IN BED WITH EYES CLOSED. NO DISTRESS NOTED. BREATHIN EVEN ON 2L NC WITH HUMDIFIER. NO S/S OF PAIN NOTED. SAFETY MEASURES IN PLACE. CALL LIGHT IS WITHIN REACH. WILL CONTINUE TO MONITOR.
[2018-08-19 06:04] VITALS: BP 105/64
--- NOTE | 2018-08-19 06:47 | NUR ---
PATIENT SLEPT IN LONG INTERVALS THROUHGOUT THE NIGHT. NO ACUTE CHANGES NOTED. BREATHING EVEN ON 2L NC WITH HUMIDIFIER. NO C/O PAIN THROUGHOUT THE NIGHT. IV TO THE RFA. PATENT AND INTACT. NO REDNESS OR SWELLING NOTED. SAFETY MEASURES IN PLACE. PATIENT AWARE AND EDUCATED ON FLUID RESTRICTION OF 1200ML/DAY. CALL LIGHT IS WITHIN REACH. WILL ENDORSE CARE TO DAY SHIFT RN.
--- NOTE | 2018-08-19 07:11 | NUR ---
ASSUMED CARE OF PATIENT. SEEN RESTING IN BED WITH NO APPARENT DISTRESS OR DISCOMFORT. CURRENTLY ON 2L NC WITH HUMIDIFIER. IV ON RFA SALINE LOCKED. NO SIGNS OF SWELLING OR REDNESS NOTED. WILL CONTINUE TO MONITOR.
[2018-08-19 07:13] LABS: CALCIUM 8.7 mg/dL (8.5-10.1); CARBON DIOXIDE 29.5 mmol/L (21-32); CHLORIDE SERUM 103 mmol/L (98-107); CREATININE SERUM 1.1 mg/dL (0.7-1.3); GLUCOSE SERUM 117 mg/dL (74-106); POTASSIUM SERUM 4.5 mmol/L (3.5-5.1); SODIUM SERUM 141 mmol/L (136-145)
[2018-08-19 07:32] LABS: BASOPHIL % 0.3 % (0-2); PLATELET COUNT 148 x10^3mcL (130-400); RED CELL DISTRIBUTION WIDTH 14.5 % (11.5-14.5)
[2018-08-19] MEDS ORDERED: IPRATROPIUM BROM3 M2 HHN ×2 (08:43→08:44)
[2018-08-19] MEDS ORDERED: ZOS3PM IV (08:44)
--- NOTE | 2018-08-19 08:55 | NUR ---
PRN MOTRIN PROVIDED FOR 5/10 [place]. PATIENT FAMILY UPDATED ON PATIENT PLAN OF CARE PER PATIENT REQUEST.
[2018-08-19 09:23] VITALS: BP 105/64
[2018-08-19 09:40] VITALS: BP 121/79
--- NOTE | 2018-08-19 09:55 | NUR ---
CALL FROM GAB[facility]; BED ASSIGNMENT , WILL BE FOLLOWED BY
--- NOTE | 2018-08-19 10:05 | NUR ---
REPORT GIVEN TO PREM AT [facility].
--- NOTE | 2018-08-19 10:19 | NUR ---
CALL TO [facility] MERCADO REGARDING TRANSPORTATION, STATES [facility] IS RESPONSIBLE FOR TRANSPORT. WILL NOTIFY CHARGE NURSE.
--- NOTE | 2018-08-19 12:00 | NUR ---
CHARGE NURSE AND SELVAGE MACHINE OPERATOR AWARE OF TRANSPORTATION SITUATION. AWAITING TIME OF CHEMICAL LAB SUPERVISOR AND TRANSPORT TO [facility].
--- NOTE | 2018-08-19 14:02 | NUR ---
TRANSFER PAPERWORK AND DISCHARGE PAPERWORK SIGNED. AWAITING TIME OF ARRIVAL FOR TRANSPORTATION.
--- NOTE | 2018-08-19 14:15 | NUR ---
PATIENT COMPLAINING OF HEADACHE. PRN TRAMADOL PROVIDED.
--- NOTE | 2018-08-19 15:53 | NUR ---
PATIENT TO BE PICKED UP BY BLS TRANSPORT IN APPROXIMATELY 1-1.5 HOURS
--- NOTE | 2018-08-19 17:28 | NUR ---
DISCHARGED VIA [facility]LS TRANSPORT. NO COMPLAINTS OF PAIN OR DISCOMFORT. NO APPARENT DISTRESS NOTED. LEFT WITH ALL BELONGINGS. PAPERWORK WITH TRANSPORT TEAM. ID BAND REMOVED. IV ON RFA REMAINS IN PLACE PER ORDERS. DISCHARGE TO [facility].
== END 2018-08-19 17:44 | DRG 871 ==
LOC: ED 15:54 → MU 18:53 → DU 18:53 → MU 08-13 15:02
PROVIDERS: General Practice; Specialist; ADMIT Internal Medicine
DX: A41.9 Sepsis, unspecified organism (principal); J18.9 Pneumonia, unspecified organism; I50.33 Acute on chronic diastolic (congestive) heart failure; E44.1 Mild protein-calorie malnutrition; J44.1 Chronic obstructive pulmonary disease with (acute) exacerbation; R65.20 Severe sepsis without septic shock; I11.0 Hypertensive heart disease with heart failure; K21.9 Gastro-esophageal reflux disease without esophagitis; I25.10 Atherosclerotic heart disease of native coronary artery without angina pectoris; F32.9 Major depressive disorder, single episode, unspecified; E78.5 Hyperlipidemia, unspecified; G47.00 Insomnia, unspecified; Z95.5 Presence of coronary angioplasty implant and graft; Z68.33 Body mass index [BMI] 33.0-33.9, adult; Z95.3 Presence of xenogenic heart valve
CPT/HCPCS: 36600; 82962; 83880; 84439; 87804; G0378; J1644; J1815; J1940; J1956; J2543; J2930; J7030; J7613; J7620; J7626; J7644; Q0092